=== PATIENT | female | born 1975 | race Caucasian/White ===

== ENCOUNTER 2019-02-26 16:44 | Emergency (ER) | payer OTHER ==
[~2019-02-26] VITALS: Ht 165.1 cm; Wt 79.8 kg
[~2019-02-26 16:44] MED LIST: CIPRO500 MG PO; FERROUS SULFAT325 M2 PO; LAC PO; LATANOPROST2.5 ML; LEVOTHYROXIN0.125 M2 PO; LUMIGAN2.5 M1 OU
[2019-02-26 17:05] VITALS: Ht 165.1 cm; Wt 79.8 kg
[2019-02-26 18:06] LABS: BASOPHIL % 0.4 % (0-2); PLATELET COUNT 162 x10^3mcL (130-400); RED CELL DISTRIBUTION WIDTH 12.8 % (11.5-14.5)
[2019-02-26 18:19] LABS: CALCIUM 8.6 mg/dL (8.5-10.1); CARBON DIOXIDE 30.5 mmol/L (21-32); CHLORIDE SERUM 102 mmol/L (98-107); CREATININE SERUM 0.8 mg/dL (0.6-1.0); GFR1 > 60 mL/min; GLUCOSE SERUM 83 mg/dL (74-106); POTASSIUM SERUM 3.6 mmol/L (3.5-5.1); SODIUM SERUM 141 mmol/L (136-145)
[2019-02-26 18:23] LABS: ALBUMIN 3.8 g/dL (3.4-5.0); ALKALINE PHOSPHATASE 88 U/L (46-116); ALT/SGPT 29 U/L (14-59); AST/SGOT 14 U/L (15-37); BILIRUBIN TOTAL 0.2 mg/dL (0.20-1.00)
[2019-02-26 18:24] LABS: TOTAL PROTEIN, SERUM 8.3 g/dL (6.4-8.2)
[2019-02-26 19:49] VITALS: BP 128/83
== END 2019-02-26 19:41 | disposition home or self-care (01) ==
LOC: ED 16:44
PROVIDERS: Emergency Medicine
DX: H53.9 Unspecified visual disturbance (principal); R55 Syncope and collapse; M79.10 Myalgia, unspecified site; I10 Essential (primary) hypertension; E03.9 Hypothyroidism, unspecified; M25.512 Pain in left shoulder
CPT/HCPCS: 90715

== ENCOUNTER 2019-09-19 23:37 | Emergency (ER) | payer OTHER ==
[~2019-09-19] VITALS: Ht 162.6 cm; Wt 81.6 kg
[2019-09-19 23:41] VITALS: Ht 162.6 cm; Wt 81.6 kg
[2019-09-20 01:36] LABS: BASOPHIL % 0.5 % (0-2); RED CELL DISTRIBUTION WIDTH 12.3 % (11.5-14.5)
[2019-09-20 01:38] LABS: CALCIUM 8.4 mg/dL (8.5-10.1); CARBON DIOXIDE 29.1 mmol/L (21-32); CHLORIDE SERUM 104 mmol/L (98-107); CREATININE SERUM 0.5 mg/dL (0.6-1.0); GFR1 > 60 mL/min; GLUCOSE SERUM 110 mg/dL (74-106); POTASSIUM SERUM 3.6 mmol/L (3.5-5.1); SODIUM SERUM 141 mmol/L (136-145)
[2019-09-20 01:41] LABS: PLATELET COUNT 205 x10^3mcL (130-400)
[2019-09-20 01:45] LABS: ALBUMIN 3.6 g/dL (3.4-5.0); ALKALINE PHOSPHATASE 83 U/L (46-116); ALT/SGPT 45 U/L (14-59); AST/SGOT 22 U/L (15-37); BILIRUBIN TOTAL 0.21 mg/dL (0.20-1.00); TOTAL PROTEIN, SERUM 8.1 g/dL (6.4-8.2)
[2019-09-20 05:41] VITALS: BP 152/94
== END 2019-09-20 05:41 | disposition home or self-care (01) ==
LOC: ED 23:37
PROVIDERS: Emergency Medicine
DX: R07.89 Other chest pain (principal); R51 Headache; I10 Essential (primary) hypertension; E07.89 Other specified disorders of thyroid; N83.209 Unspecified ovarian cyst, unspecified side; Z88.5 Allergy status to narcotic agent
CPT/HCPCS: J0780; J1200; J1885; J7030; Q0092